=== PATIENT | male | born 1965 | race Caucasian/White ===

== ENCOUNTER → 2016-07-21 | Outpatient (CLI) | payer MEDICAID ==
--- NOTE | 2016-07-21 16:42 | CT ---
EXAMINATION TYPE: CT abdomen pelvis w con DATE OF EXAM: 07/21/2016 4:22 PM COMPARISON: NONE INDICATION: left upper quadrant pain and stomach pain DLP: 2306 mGycm, Automated exposure control for dose reduction was used. CONTRAST: 100 mL of Omnipaque 300. Study performed with Oral Contrast TECHNIQUE: Axial images were obtained from above the diaphragm to the pubic rami in the axial plane a t 5 mm thick sections. Reconstructed images are reviewed on the computer in the coronal plane. FINDINGS: Limited CT sections are obtained the lung bases. The lung bases are clear. CT ABDOMEN: Liver: There is an irregular 5.0 cm hypodense mass in the posterior medial right lobe liver suspiciou s for hemangioma. This measures 35 Hounsfield units and fills peripheral towards medial. This area i s similar in appearance to the 08/25/2014 examination suggesting neoplasm to BE less likely. There are additional hypodensities scattered within the liver which has smooth margins lower Hounsfie ld unit measurements more likely related to cysts. The largest is in the inferior right lobe liver me asuring 3.9 cm. There are additional low density indeterminate rounded masses measuring approximately 1.7 and 1.6 cm in size along the anterior right left lobe of the liver margins. These could be addit ional hemangioma faintly visualized previously. Additional small hypodensities in the anterior right lobe liver subcortical margin may be additional cyst. Spleen: Normal Pancreas: Normal Adrenal glands: The adrenal glands are normal. Gallbladder: Normal Kidneys: No masses are evident. No hydronephrosis is present. No cysts are present. Delayed images were obtained through the kidneys, which remain unremarkable. Aorta: Vascular calcification is within the aorta. Inferior vena cava: Normal. CT PELVIS: Loops of bowel within the abdomen and pelvis are normal. Multiple diverticuli without acute diver ticulitis is within the sigmoid colon. Appendix: Normal as visualized. Urinary bladder: Normal. Genitourinary structures: Prostate is unremarkable. Osseous structures: No suspicious lytic or sclerotic lesions. IMPRESSIONS: 1. Probable hemangiomas within the liver without significant change from 08/25/2014.
== END | disposition home or self-care (01) ==
LOC: RADCTMAIN 14:12
PROVIDERS: ATTEND Physician Assistant
DX: R10.9 Unspecified abdominal pain (principal)
CPT/HCPCS: 74177; Q9967; 76700

== ENCOUNTER → 2016-07-21 | Outpatient (CLI) | payer MEDICAID ==
--- NOTE | 2016-07-21 10:34 | US ---
EXAMINATION TYPE: US abdomen complete DATE OF EXAM: 07/21/2016 10:06 AM COMPARISON: Correlation ultrasound 08/11/[address] abdomen 08/25/2014 CLINICAL HISTORY: 51-year-old male with R10.9 Abdominal Pain. LUQ pain. NPO. History of liver lesions . TECHNIQUE: Multiple sonographic images of the abdomen are obtained. FINDINGS: Liver Length: 18.6 cm Gallbladder Wall: 0.2 cm CHD: 0.5 cm Spleen: 12.6 cm Right Kidney: 11.7 x 6.5 x 6.6 cm Left Kidney: 11.2 x 6.0 x 6.9 cm Pancreas: Obscured by bowel gas Liver: Mildly enlarged. Multiple lesions seen. 1- Posterior right lobe, cystic lesion = 5.0 x 3.3 x 4.1 cm. 2- Right lobe, cystic lesion = 1.2 x 1.0 x 0.8 cm. 3- Septated cystic lesion in right lobe - 1.4 x 1.7 x 1.0 cm. 4- Echogenic nonvascular lesion in left anterior lobe = 1.7 x 1.8 x 1.7 cm, likely hemangioma when co rrelating with prior exams. 5- Hyperechoic solid vascular lesion in anterior left lobe = 3.2 x 3.3 x 2.6 cm. Position and appea eduar corresponds well to a hemangioma seen on to CTA of 08/25/14. Gallbladder: Mildly hydropic measuring 4.3 cm wide. However, no evidence for wall thickening, perich olecystic fluid, or shadowing calculi. Evidence for sonographic Colin's sign: neg CHD: Normal caliber Spleen: Within normal limits Right Kidney: No hydronephrosis Left Kidney: No hydronephrosis Upper IVC: seen Abd Aorta: seen IMPRESSION: 1. Mild hepatomegaly. 2. A number of liver lesions are present, suspected to represent benign cysts and hemangiomas, measur ing up to 5 cm and 3. Mildly hydropic gallbladder likely due to fasting state as there are no ancillary findings of chol elithiasis or acute cholecystitis.
== END | disposition home or self-care (01) ==
LOC: RADUSWWP 09:29
PROVIDERS: ATTEND Family Medicine
DX: R16.0 Hepatomegaly, not elsewhere classified (principal); K76.9 Liver disease, unspecified; K82.1 Hydrops of gallbladder
CPT/HCPCS: 76700

== ENCOUNTER 2016-10-20 09:04 | Day surgery (SDC) | payer MEDICAID ==
[2016-10-17 12:30] VITALS: BMI 35.2
[~2016-10-20 09:04] MED LIST: LACTATED RINGERS 1,000 ML IV SCH
[2016-10-20 09:46] VITALS: TEMP 98.3
[2016-10-20] MEDS ORDERED: LIDOCAINE 1% 20 ML VIAL (10MG/ML) FOR IV START INTRADERMA ONE (09:52)
[2016-10-20] MEDS ORDERED: PROPOFOL 10 MG/ML 20 ML VIAL IV ONE (10:20)
--- NOTE | 2016-10-20 10:51 | P.PCN ---
Date of Procedure: 10/20/16 Preoperative Diagnosis: Postoperative Diagnosis: Procedure(s) Performed: BRIEF HISTORY: Patient is a 51-year-old pleasant white male, scheduled for an elective colonoscopy as a part of evaluation of recent episode of acute sigmoid diverticulitis and haven't 2 months ago. Presently he complains of intermittent right lower quadrant abdominal pain but denies any change in bowel habits. PROCEDURE PERFORMED: Colonoscopy with biopsy biopsy. PREOPERATIVE DIAGNOSIS: He said episode of acute sigmoid diverticulitis. IV sedation per Anesthesia. PROCEDURE: After informed consent was obtained, the patient, was brought into the endoscopy unit. IV sedation was administered by Anesthesia under continuous monitoring. Digital rectal examination was normal. Initially the Olympus CF- 160 flexible video colonoscope was then inserted in the rectum, gradually advanced into the cecum without any difficulty. Careful examination was performed as the scope was gradually being withdrawn. Ileocecal valve and the appendiceal orifice were visualized and appeared normal. Prep was excellent. Mucosa of the cecum, ascending colon, transverse colon, descending colon, sigmoid colon, and rectum appeared normal. 5 mm the polyp was noted in the distal rectum which was removed by biopsy. Scattered sigmoid diverticulosis seen. Retroflexion was performed in the rectum and no lesions were seen. The patient tolerated the procedure well. IMPRESSION: 5 mm distal rectal polyp status post removal by biopsy Scattered sigmoid diverticulosis RECOMMENDATIONS: Findings of this examination were discussed with the patient as well as his family. He was advised to follow with the biopsy results. He' ll be a high-fiber diet, take fiber supplements a regular basis. If the biopsy shows a tubular adenoma he can have a repeat colonoscopy in 5 years. Implants: Indications for Procedure: Operative Findings: Description of Procedure:
[2016-10-20 11:10] VITALS: RESP 18
[2016-10-20 11:15] VITALS: PULSE 71
[2016-10-20 11:23] VITALS: BP 132/90
== END 2016-10-20 11:35 | disposition home or self-care (01) ==
LOC: ORWHC2ENDO 09:04
PROVIDERS: ATTEND Internal Medicine Gastroenterology
DX: K62.1 Rectal polyp (principal); K57.30 Diverticulosis of large intestine without perforation or abscess without bleeding; I10 Essential (primary) hypertension; J44.9 Chronic obstructive pulmonary disease, unspecified; Z87.891 Personal history of nicotine dependence; K21.9 Gastro-esophageal reflux disease without esophagitis; Z88.6 Allergy status to analgesic agent
CPT/HCPCS: 88305; 45380; J2704

== ENCOUNTER → 2020-03-19 | Outpatient (CLI) | payer MEDICAID ==
[2020-03-19 12:30] LABS: HCT 44.3 % (39.0-53.0); HGB 14.6 gm/dL (13.0-17.5); MCH 29.1 pg (25.0-35.0); MCHC 33.1 g/dL (31.0-37.0); MCV 88.2 fL (80.0-100.0); Mean Platelet Volume 7.9; Platelet Count 300 k/uL (150-450); RBC 5.02 m/uL (4.30-5.90); RDW 12.6 % (11.5-15.5); WBC 7.6 k/uL (3.8-10.6)
[2020-03-19 20:18] LABS: Erythrocyte Sedimentation Rate 6 mm/Hr (0-20)
[2020-03-19 22:04] LABS: ALT 36 U/L (10-49); AST 23 U/L (14-35); African American GFR (CKD) 99.1 (60.0-200.0); Albumin/Globulin Ratio 2.33 (1.60-3.17); Alkaline Phosphatase 92 U/L (41-126); C Reactive Protein <0.4 mg/dL (0.0-0.8); Calcium 9.6 mg/dL (8.7-10.3); Carbon Dioxide 28.1 mmol/L (21.6-31.8); Chloride 102 mmol/L (96-109); Globulin 2.1 g/dL (1.6-3.3); Glucose 91 mg/dL (70-110); Non-African American GFR(CKD) 85.5 (60.0-200.0); Potassium 4.5 mmol/L (3.5-5.5); Sodium 140 mmol/L (135-145); Total Bilirubin 0.6 mg/dL (0.2-1.2)
== END | disposition home or self-care (01) ==
LOC: LABWHC1 11:47
PROVIDERS: ATTEND Orthopaedic Surgery Adult Reconstructive Orthopaedic Surgery
DX: T84.84XS Pain due to internal orthopedic prosthetic devices, implants and grafts, sequela (principal); Z47.1 Aftercare following joint replacement surgery; Z96.652 Presence of left artificial knee joint; E66.9 Obesity, unspecified; M23.52 Chronic instability of knee, left knee
CPT/HCPCS: 36415; 80053; 85027; 85652; 86140

== ENCOUNTER 2020-08-05 08:42 | Emergency (ER) | payer MEDICAID ==
[2020-08-05 08:52] VITALS: RESP 18; TEMP 97.9
[2020-08-05] MEDS ORDERED: HYDROmorphone 0.5 MG/0.5 ML SYRINGE IVP STA (09:07)
[2020-08-05] MEDS ORDERED: ONDANSETRON 4 MG/2 ML VIAL IVP STA (09:07)
[2020-08-05] MEDS ORDERED: SODIUM CHLORIDE 0.9% 1,000 ML IV STA (09:07)
--- NOTE | 2020-08-05 09:13 | ED ---
Abdominal Pain HPI - General Chief Complaint: Abdominal Pain Stated Complaint: Sent by PCP - hernia Time Seen by Provider: 08/05/20 08:57 Source: patient, RN notes reviewed Mode of arrival: ambulatory Limitations: no limitations - History of Present Illness Initial Comments: 55-year-old male presents emergency Department chief complaint of abdominal kaitlin n. Patient states that he had some pain 1 on doing has rapid strep his boat yesterday states that the pain continued he lay down last night symptoms did improve some but still has quite a bit of pain in the right periumbilical side. Patient was seen by PCP sent him to emergency from for evaluation. Patient had 2 prior inguinal hernia repair no other abdominal surgeries denies any dysuria hematuria had normal bowel movements morning passing gas well. - Related Data Home Medications Medication Instructions Recorded Confirmed Losartan Potassium 50 mg PO DAILY 05/03/15 08/05/20 Fluticasone/Vilanterol [Breo 1 puff INHALATION RT-DAILY 08/05/20 08/05/20 Ellipta 200-25 Mcg INH] Allergies Allergy/AdvReac Type Severity Reaction Status Date / Time NSAIDS (Non-Steroidal AdvReac Unknown INSTRUCTED Verified 08/05/20 08:51 Anti-Inflamma NOT TO TAKE - HX OF ULCER Review of Systems ROS Statement: Those systems with pertinent positive or pertinent negative responses have been documented in the HPI. ROS Other: All systems not noted in ROS Statement are negative. Past Medical History Past Medical History: GERD/Reflux, GI Bleed, Hypertension, Musculoskeletal Disorder, Osteoarthritis (OA) Additional Past Medical History / Comment(s): DJD, BULGING CERVICAL DISCS, CHRONIC BACK AND NECK PAIN., LEFT LEG NUMBNESS. BILATERAL ANKLE EDEMA AT TIMES, KNEES "GIVE OUT" AT TIMES., HX OF BLEEDING STOMACH ULCER., STATES EASILY SOB., STATES POSSIBLE DIVERTICULITIS. History of Any Multi-Drug Resistant Organisms: None Reported Past Surgical History: Hernia Repair, Joint Replacement, Orthopedic Surgery Additional Past Surgical History / Comment(s): L knee surgeries X 4 R knee arthroscopy, bilateral inguina hernia repairs. BILAT TKA Past Anesthesia/Blood Transfusion Reactions: No Reported Reaction Additional Past Anesthesia/Blood Transfusion Reaction / Comment(s): . Past Psychological History: No Psychological Hx Reported Smoking Status: Never smoker Past Alcohol Use History: Occasional Past Drug Use History: None Reported - Past Family History Father Family Medical History: Cancer, Hyperlipidemia, Hypertension Additional Family Medical History / Comment(s): SKIN CANCER. Mother Family Medical History: Osteoarthritis (OA) Additional Family Medical History / Comment(s): . General Exam Limitations: no limitations General appearance: alert, in no apparent distress Head exam: Present: atraumatic, normocephalic, normal inspection Respiratory exam: Present: normal lung sounds bilaterally. Absent: respiratory distress, wheezes, rales, rhonchi, stridor Cardiovascular Exam: Present: regular rate, normal rhythm, normal heart sounds. Absent: systolic murmur, diastolic murmur, rubs, gallop, clicks GI/Abdominal exam: Present: soft, tenderness (Moderate right periumbilical tenderness), normal bowel sounds, hernia (Reducible umbilical). Absent: distended, guarding, rebound, rigid Back exam: Absent: CVA tenderness (R), CVA tenderness (L) Neurological exam: Present: alert Skin exam: Present: warm, dry, intact, normal color. Absent: rash Course Vital Signs 08/05/20 08:43 Temperature 97.9 F Pulse Rate 66 Respiratory 18 Rate Blood Pressure 160/88 O2 Sat by Pulse 98 Oximetry Medical Decision Making - Medical Decision Making CT does not reveal any acute abnormality's. Laboratory unremarkable. Patient has abdominal wall strain, reducible hernia will be discharged in stable condition at on-call surgeon. - Lab Data Result diagrams: 08/05/20 09:34 08/05/20 09:34 Lab Results 08/05/20 08/05/20 08/05/20 Range/Units 09:34 09:34 09:34 WBC 6.4 (3.8-10.6) k/uL RBC 4.95 (4.30-5.90) m/uL Hgb 14.5 (13.0-17.5) gm/dL Hct 41.5 (39.0-53.0) % MCV 83.9 (80.0-100.0) fL MCH 29.2 (25.0-35.0) pg MCHC 34.8 (31.0-37.0) g/dL RDW 13.3 (11.5-15.5) % Plt Count 265 (150-450) k/uL MPV 8.2 Neutrophils % 64 % Lymphocytes % 24 % Monocytes % 7 % Eosinophils % 2 % Basophils % 1 % Neutrophils # 4.1 (1.3-7.7) k/uL Lymphocytes # 1.6 (1.0-4.8) k/uL Monocytes # 0.4 (0-1.0) k/uL Eosinophils # 0.2 (0-0.7) k/uL Basophils # 0.0 (0-0.2) k/uL Sodium 137 (137-145) mmol/L Potassium 4.9 (3.5-5.1) mmol/L Chloride 104 (98-107) mmol/L Carbon Dioxide 23 (22-30) mmol/L Anion Gap 10 mmol/L BUN 15 (9-20) mg/dL Creatinine 0.83 (0.66-1.25) mg/dL Est GFR (CKD-EPI)AfAm >90 (>60 ml/min/1.73 sqM) Est GFR (CKD-EPI)NonAf >90 (>60 ml/min/1.73 sqM) Glucose 101 H (74-99) mg/dL Plasma Lactic Acid Elia (0.7-2.0) mmol/L Calcium 9.9 (8.4-10.2) mg/dL Total Bilirubin 0.7 (0.2-1.3) mg/dL AST 30 (17-59) U/L ALT 25 (4-49) U/L Alkaline Phosphatase 94 (38-126) U/L Total Protein 7.7 (6.3-8.2) g/dL Albumin 4.8 (3.5-5.0) g/dL Lipase 259 (23-300) U/L Urine Color Yellow Urine Appearance Clear (Clear) Urine pH 5.5 (5.0-8.0) Ur Specific [place] 1.015 (1.001-1.035) Urine Protein Negative (Negative) Urine Glucose (UA) Negative (Negative) Urine Ketones Negative (Negative) Urine Blood Negative (Negative) Urine Nitrite Negative (Negative) Urine Bilirubin Negative (Negative) Urine Urobilinogen <2.0 (<2.0) mg/dL Ur Leukocyte Esterase Negative (Negative) 08/05/20 Range/Units 09:34 WBC (3.8-10.6) k/uL RBC (4.30-5.90) m/uL Hgb (13.0-17.5) gm/dL Hct (39.0-53.0) % MCV (80.0-100.0) fL MCH (25.0-35.0) pg MCHC (31.0-37.0) g/dL RDW (11.5-15.5) % Plt Count (150-450) k/uL MPV Neutrophils % % Lymphocytes % % Monocytes % % Eosinophils % % Basophils % % Neutrophils # (1.3-7.7) k/uL Lymphocytes # (1.0-4.8) k/uL Monocytes # (0-1.0) k/uL Eosinophils # (0-0.7) k/uL Basophils # (0-0.2) k/uL Sodium (137-145) mmol/L Potassium (3.5-5.1) mmol/L Chloride (98-107) mmol/L Carbon Dioxide (22-30) mmol/L Anion Gap mmol/L BUN (9-20) mg/dL Creatinine (0.66-1.25) mg/dL Est GFR (CKD-EPI)AfAm (>60 ml/min/1.73 sqM) Est GFR (CKD-EPI)NonAf (>60 ml/min/1.73 sqM) Glucose (74-99) mg/dL Plasma Lactic Acid Elia 1.2 (0.7-2.0) mmol/L Calcium (8.4-10.2) mg/dL Total Bilirubin (0.2-1.3) mg/dL AST (17-59) U/L ALT (4-49) U/L Alkaline Phosphatase (38-126) U/L Total Protein (6.3-8.2) g/dL Albumin (3.5-5.0) g/dL Lipase (23-300) U/L Urine Color Urine Appearance (Clear) Urine pH (5.0-8.0) Ur Specific [place] (1.001-1.035) Urine Protein (Negative) Urine Glucose (UA) (Negative) Urine Ketones (Negative) Urine Blood (Negative) Urine Nitrite (Negative) Urine Bilirubin (Negative) Urine Urobilinogen (<2.0) mg/dL Ur Leukocyte Esterase (Negative) Disposition Clinical Impression: Abdominal wall strain, Umbilical hernia Disposition: HOME SELF-CARE Condition: Stable Instructions (If sedation given, give patient instructions): Ventral Hernia (ED) Additional Instructions: Please return to the Emergency Department if symptoms worsen or any other concerns. Is patient prescribed a controlled substance at d/c from ED?: No Referrals: Vivian Esteban MD [Primary Care Provider] - 1-2 days Lb Suarez MD [STAFF PHYSICIAN] - 1-2 days Time of Disposition: 10:40
[2020-08-05 09:55] LABS: Basophils % (A) 1 %; Eosinophils # (A) 0.2 k/uL (0-0.7); Eosinophils % (A) 2 %; HCT 41.5 % (39.0-53.0); HGB 14.5 gm/dL (13.0-17.5); Lymphocytes # (A) 1.6 k/uL (1.0-4.8); Lymphocytes % (A) 24 %; MCH 29.2 pg (25.0-35.0); MCHC 34.8 g/dL (31.0-37.0); MCV 83.9 fL (80.0-100.0); Mean Platelet Volume 8.2; Monocytes # (A) 0.4 k/uL (0-1.0); Monocytes % (A) 7 %; Neutrophils # (A) 4.1 k/uL (1.3-7.7); Neutrophils % (A) 64 %; Platelet Count 265 k/uL (150-450); RBC 4.95 m/uL (4.30-5.90); RDW 13.3 % (11.5-15.5); WBC 6.4 k/uL (3.8-10.6)
[2020-08-05 09:57] LABS: Appearance,Urine Clear (Clear); Bilirubin,Urine Negative (Negative); Blood,Urine Negative (Negative); Color,Urine Yellow; Glucose,Urine (UA) Negative (Negative); Ketones,Urine Negative (Negative); Leukocyte Esterase,Urine Negative (Negative); Nitrite,Urine Negative (Negative); PH, Urine 5.5 (5.0-8.0); Protein,Urine Negative (Negative); Specific Gravity,Urine 1.015 (1.001-1.035); Urobilinogen,Urine <2.0 mg/dL (<2.0)
[2020-08-05 10:03] LABS: ALT 25 U/L (4-49); AST 30 U/L (17-59); African American GFR (CKD) >90 (>60 ml/min/1.73 sqM); Albumin 4.8 g/dL (3.5-5.0); Alkaline Phosphatase 94 U/L (38-126); Anion Gap 10 mmol/L; Blood Urea Nitrogen 15 mg/dL (9-20); Calcium 9.9 mg/dL (8.4-10.2); Carbon Dioxide 23 mmol/L (22-30); Chloride 104 mmol/L (98-107); Glucose 101 mg/dL (74-99); Lipase 259 U/L (23-300); Non-African American GFR(CKD) >90 (>60 ml/min/1.73 sqM); Potassium 4.9 mmol/L (3.5-5.1); Sodium 137 mmol/L (137-145); Total Bilirubin 0.7 mg/dL (0.2-1.3); Total Protein 7.7 g/dL (6.3-8.2)
--- NOTE | 2020-08-05 10:33 | CT ---
EXAMINATION TYPE: CT abdomen pelvis w con DATE OF EXAM: 08/05/2020 COMPARISON: CT abdomen pelvis 07/21/2016 HISTORY: Abdominal pain, prior hernia CT DLP: 2035.6 mGycm Automated exposure control for dose reduction was used. TECHNIQUE: Helical acquisition of images was performed from the lung bases through the pelvis. Delay ed images through the abdomen were obtained for evaluation of the renal collecting system. CONTRAST: Performed without Oral Contrast and with IV Contrast, patient injected with 100 ml mL of Isovue 300. FINDINGS: LUNG BASES: Normal. LIVER: There are several redemonstrated hypodense masses throughout the right and left lobes of the l iver, which are similar in appearance to 2017 comparison. The largest measures up to 5.5 x 5.0 cm at the right dome. The lesion and anterior segment 3 measures 3.0 x 2.5 cm, which is mildly decreased ve rsus 2017 when it measured 3.4 x 2.7 cm. Several redemonstrated benign appearing hepatic cysts, and t oo small to characterize hypodense lesions. BILIARY SYSTEM: Normal. PANCREAS: Normal. SPLEEN: Normal. ADRENALS: Normal. KIDNEYS: No hydronephrosis bilaterally. There is a subcentimeter exophytic simple cyst of the right i nterpolar kidney. Symmetric renal excretion on delayed images through the kidneys. BOWEL: Tiny hiatal hernia. No obstruction or thickening. Colonic diverticulosis. Redemonstrated duod enal diverticulum of the second and third portions of the duodenum. No acute diverticulitis. PERITONEUM: No pneumoperitoneum. No free fluid. There is a very tiny ventral midline supraumbilical fat-containing hernia. LYMPH NODES: No lymphadenopathy. PELVIS: Normal. VASCULATURE: No abdominal aortic aneurysm. MUSCULOSKELETAL: Mild degenerative changes of the visualized spine. There is a redemonstrated well-d efined lytic lesion of the right iliac bone measuring 1.0 cm (201:62), which is unchanged versus 2017 and likely benign. IMPRESSION: 1. No acute abdominopelvic findings to explain patient's abdominal pain. 2. Colonic and duodenal diverticula with no acute diverticulitis. 3. Several redemonstrated hypodense liver masses are not significantly changed versus 2017, which ma y represent hemangiomas.
[2020-08-05] MEDS ORDERED: ACET/COD 300 MG/30 MG STARTER PACK 6 TAB BTL PO STA (10:39)
[2020-08-05 10:48] VITALS: BP 161/80; PULSE 61
== END 2020-08-05 10:50 | disposition home or self-care (01) ==
LOC: EC 08:42
DX: S39.011A Strain of muscle, fascia and tendon of abdomen, initial encounter (principal); K42.9 Umbilical hernia without obstruction or gangrene; K21.9 Gastro-esophageal reflux disease without esophagitis; I10 Essential (primary) hypertension; M19.90 Unspecified osteoarthritis, unspecified site; X58.XXXA Exposure to other specified factors, initial encounter
CPT/HCPCS: 36415; 80053; 83605; 83690; 85025; 81003; 74177; 99284; 96374; 96375; 96361; J2405; J1170; Q9967

== ENCOUNTER → 2021-06-09 | Outpatient (CLI) | payer MEDICAID ==
--- NOTE | 2021-06-09 12:50 | MR ---
EXAMINATION TYPE: MR shoulder LT wo con DATE OF EXAM: 06/09/2021 COMPARISON: 05/27/2021 HISTORY: Left shoulder pain for 5 weeks, limited range of motion. TECHNIQUE: Multiplanar, multisequence imaging of the Left shoulder is performed without contrast. FINDINGS: Incidental note is made of an os acromiale. There is a small glenohumeral joint effusion with a small amount of fluid in the subcutaneous acromia l and subdeltoid bursa area There is diffuse severe thickening and increased signal edematous change involving the entire inserti on of the supraspinatus tendon compatible with a high-grade partial tear most noted along the articul ar fibers with a few bursal surface strands remaining. Subscapularis tendon is intact. Increased signal at the insertion of the infraspinatus tendon along t he articular fibers. Bicipital tendon is well situated within the bicipital groove with increased fluid surrounding the te ndon. Additionally there is increased intrasubstance signal in the intracapsular portion of the tendo n compatible with tendinosis. Suprascapular notch has a normal appearance. There is abnormal signal involving the superior labrum extending from anterior to posterior compatibl e with a SLAP tear. There is abnormal signal involving the anterior inferior labrum compatible with l abral tear. There is thickening of the inferior glenohumeral ligament compatible with sprain. Suspect a partial tear at the glenoid attachment of the inferior glenohumeral ligament. AC joint arthropathy is noted with findings compatible with moderate osteoarthritis. Nonspecific carine ow signal likely reactive secondary to chronic impingement involving the superior margin of the humer al head. Chronic appearing deformity could be on the basis of chronic impingement rather than previou s dislocation correlate clinically. IMPRESSION: 1. Diffuse thickening and edematous change involving the insertion and distal supraspinatus tendon co mpatible severe tendinosis and high-grade partial tear greatest involvement involving the articular f ibers. A few residual bursal surface stranding remained without evidence of complete through thicknes s tear or retraction. 2. SLAP tear 3. There is a tear involving the anterior inferior glenoid labrum. Thickening and edematous change of the inferior glenohumeral ligament compatible with sprain. Partial tear at the glenoid attachment of the inferior glenohumeral ligament. 4. Bicipital tendinosis. Increased intrasubstance signal within the intracapsular portion of the tend on can be associated with a split tear correlate clinically. 5. Thickening and increased signal compatible with edematous change involving the insertion of the in fraspinatus tendon compatible tendinosis and partial intrasubstance tear predominantly involving the articular fibers. Bursal fibers intact.
== END | disposition home or self-care (01) ==
LOC: RADMRIMAIN 10:52
PROVIDERS: ATTEND Orthopaedic Surgery
DX: S43.432A Superior glenoid labrum lesion of left shoulder, initial encounter (principal); M75.22 Bicipital tendinitis, left shoulder; M75.52 Bursitis of left shoulder; X58.XXXA Exposure to other specified factors, initial encounter

== ENCOUNTER → 2021-08-22 | Outpatient (CLI) | payer MEDICAID ==
[2021-08-22 14:02] VITALS: BP 175/99; PULSE 75; RESP 18; TEMP 98.3
--- NOTE | 2021-08-22 14:10 | P.CONS ---
History of Present Illness - Reason for Consult Consult date: 08/22/21 - Chief Complaint Bilateral knee pain, left shoulder pain - History of Present Illness This is a 56-year-old gentleman with history of chronic neck pain bilaterally status post multiple surgeries on the left knee ended with removal of the left patella. This pain starts with any weightbearing activity. The patient failed to respond to multiple interventional pain procedures previously as he states and also failed to respond to physical therapy. He does wear a brace around his left knee constantly. The patient tries to stay active and that's why he found that Van Meter is the only treatment which helped him do that. Used to be on Van Meter 10 mg 4 times a day and he takes them as 2 pills in the morning and 2 pills at night. The patient denies any side effects to this medication. Review of Systems Constitutional: Reports as per HPI Ears, nose, mouth and throat: Denies headache, Denies sore throat Cardiovascular: Denies chest pain, Denies shortness of breath Respiratory: Denies cough Musculoskeletal: Reports as per HPI Integumentary: Denies pruritus, Denies rash Neurological: Reports as per HPI Past Medical History Past Medical History: GERD/Reflux, GI Bleed, Hypertension, Musculoskeletal Disorder, Osteoarthritis (OA) Additional Past Medical History / Comment(s): DJD, BULGING CERVICAL DISCS, CHRONIC BACK AND NECK PAIN., LEFT LEG NUMBNESS. BILATERAL ANKLE EDEMA AT TIMES, KNEES "GIVE OUT" AT TIMES., HX OF BLEEDING STOMACH ULCER., STATES EASILY SOB., STATES POSSIBLE DIVERTICULITIS. History of Any Multi-Drug Resistant Organisms: None Reported Past Surgical History: Hernia Repair, Joint Replacement, Orthopedic Surgery Additional Past Surgical History / Comment(s): L knee surgeries X 4 R knee arthroscopy, bilateral inguina hernia repairs. BILAT TKA Past Anesthesia/Blood Transfusion Reactions: No Reported Reaction Additional Past Anesthesia/Blood Transfusion Reaction / Comm: . Smoking Status: Never smoker - Past Family History Father Family Medical History: Cancer, Hyperlipidemia, Hypertension Additional Family Medical History / Comment(s): SKIN CANCER. Mother Family Medical History: Osteoarthritis (OA) Additional Family Medical History / Comment(s): . Medications and Allergies Home Medications Medication Instructions Recorded Confirmed Type Losartan Potassium 50 mg PO DAILY 05/03/15 08/05/20 History Fluticasone/Vilanterol [Breo 1 puff INHALATION RT-DAILY 08/05/20 08/05/20 History Ellipta 200-25 Mcg Inhaler] Allergies Allergy/AdvReac Type Severity Reaction Status Date / Time NSAIDS (Non-Steroidal AdvReac Unknown INSTRUCTED Verified 08/05/20 08:51 Anti-Inflamma NOT TO TAKE - HX OF ULCER Physical Exam Vitals: Vital Signs Temp Pulse Resp BP Pulse Ox 08/22/21 13:50 98.3 F 75 18 175/99 75 L - Constitutional General appearance: morbidly obese - EENT Eyes: PERRLA - Neurologic Neurologic: CNII-XII intact - Musculoskeletal Antalgic gait Swelling around the left knee with tenderness Well-healed scars from previous surgery on the knees bilaterally - Psychiatric Psychiatric: A&O x's 3, appropriate affect, intact judgment & insight Assessment and Plan Plan: This is a 56-year-old gentleman with history of chronic mechanical pain in both knees due to previous multiple surgeries. The patient failed to respond to interventional procedures and physical therapy previously. Van Meter has been working well for his pain as he states. I I will refer the patient to see Dr. Chan for opioid management and I will give him prescription for only 60 pills of Van Meter 10 mg to last her until he gets any with Dr. Montgomery. I thank you for the referral
== END ==
LOC: PNWHC3 13:05
PROVIDERS: ATTEND Anesthesiology
DX: M25.562 Pain in left knee (principal); M25.561 Pain in right knee; I10 Essential (primary) hypertension; M19.90 Unspecified osteoarthritis, unspecified site; Z88.6 Allergy status to analgesic agent; Z87.891 Personal history of nicotine dependence
CPT/HCPCS: 99211

== ENCOUNTER 2022-03-22 14:22 | Emergency (ER) | payer BC, MEDICAID ==
[2022-03-22 14:37] VITALS: TEMP 98.2
[2022-03-22] MEDS ORDERED: HYDROmorphone 1 MG/ML 1 ML SYRINGE IM STA (15:01)
--- NOTE | 2022-03-22 15:19 | ED ---
Extremity Problem HPI - General Chief complaint: Extremity Problem,Nontraumatic Stated complaint: left leg injury Time Seen by Provider: 03/22/22 14:38 Source: patient, RN notes reviewed Mode of arrival: wheelchair Limitations: physical limitation - History of Present Illness Initial comments: 56-year-old male presents emergency Department chief complaint left ankle, left leg pain. Patient states she stands rocks one step down states that his foot, ankle and leg twisted. He complains of left lateral ankle pain, left proximal tib-fib pain. Patient states that he has a bad knee and the left always wears a brace. Patient denies any paresthesias denies any other muscle skeletal injury. Patient did not take anything prior arrival. Patient states he has an ALLERGY to anti-inflammatories - Related Data Home Medications Medication Instructions Recorded Confirmed Losartan Potassium 50 mg PO DAILY 05/03/15 08/05/20 Fluticasone/Vilanterol [Breo 1 puff INHALATION RT-DAILY 08/05/20 08/05/20 Ellipta 200-25 Mcg Inhaler] Allergies Allergy/AdvReac Type Severity Reaction Status Date / Time NSAIDS (Non-Steroidal AdvReac Unknown INSTRUCTED Verified 03/22/22 14:36 Anti-Inflamma NOT TO TAKE - HX OF ULCER Review of Systems ROS Statement: Those systems with pertinent positive or pertinent negative responses have been documented in the HPI. ROS Other: All systems not noted in ROS Statement are negative. Past Medical History Past Medical History: GERD/Reflux, GI Bleed, Hypertension, Musculoskeletal Disorder, Osteoarthritis (OA) Additional Past Medical History / Comment(s): DJD, BULGING CERVICAL DISCS, CHRONIC BACK AND NECK PAIN., LEFT LEG NUMBNESS. BILATERAL ANKLE EDEMA AT TIMES, KNEES "GIVE OUT" AT TIMES., HX OF BLEEDING STOMACH ULCER., STATES EASILY SOB., STATES POSSIBLE DIVERTICULITIS. History of Any Multi-Drug Resistant Organisms: None Reported Past Surgical History: Hernia Repair, Joint Replacement, Orthopedic Surgery Additional Past Surgical History / Comment(s): L knee surgeries X 4 R knee arthroscopy, bilateral inguina hernia repairs. BILAT TKA Past Anesthesia/Blood Transfusion Reactions: No Reported Reaction Additional Past Anesthesia/Blood Transfusion Reaction / Comment(s): . Past Psychological History: No Psychological Hx Reported Smoking Status: Never smoker Past Alcohol Use History: Occasional Past Drug Use History: None Reported - Past Family History Father Family Medical History: Cancer, Hyperlipidemia, Hypertension Additional Family Medical History / Comment(s): SKIN CANCER. Mother Family Medical History: Osteoarthritis (OA) Additional Family Medical History / Comment(s): . General Exam Limitations: no limitations General appearance: alert, in no apparent distress Head exam: Present: atraumatic, normocephalic, normal inspection Neck exam: Present: normal inspection. Absent: tenderness, meningismus, lymphadenopathy Respiratory exam: Present: normal lung sounds bilaterally. Absent: respiratory distress, wheezes, rales, rhonchi, stridor Cardiovascular Exam: Present: regular rate, normal rhythm, normal heart sounds. Absent: systolic murmur, diastolic murmur, rubs, gallop, clicks Extremities exam: Present: other (Left ankle lateral malleolar region there is moderate swelling and tenderness palpation there is diffuse tenderness to the lateral portion the left leg to the proximal tib-fib region neurovascular intact no foot tenderness no ecchymosis noted) Skin exam: Present: warm, dry, intact, normal color. Absent: rash Course Vital Signs 03/22/22 14:33 Temperature 98.2 F Pulse Rate 75 Respiratory 16 Rate Blood Pressure 151/96 O2 Sat by Pulse 100 Oximetry Medical Decision Making - Medical Decision Making X-ray as interpreted by me and radiology proximal fibular fracture x-rays include left ankle left tib-fib left knee patient was placed in knee immobilizer was placed and crutches will follow-up with orthopedics advised to remain essentially nonweightbearing until follow-up Disposition Clinical Impression: Fracture of left proximal fibula Disposition: HOME SELF-CARE Condition: Stable Instructions (If sedation given, give patient instructions): Leg Fracture (ED) Additional Instructions: Please return to the Emergency Department if symptoms worsen or any other concerns. Is patient prescribed a controlled substance at d/c from ED?: No Referrals: [facility] [NON-STAFF] - (Supplier of Crutches) Vivian Esteban MD [Primary Care Provider] - 1-2 days Rogelio Dey MD [STAFF PHYSICIAN] - 1-2 days Time of Disposition: 15:58
--- NOTE | 2022-03-22 16:01 | XR ---
EXAMINATION TYPE: XR knee complete LT DATE OF EXAM: 03/22/2022 CLINICAL HISTORY: pain TECHNIQUE: Three views of the left knee are obtained. COMPARISON: None. FINDINGS: Total knee arthroplasty is in place with the femoral and tibial components appearing well s eated. There is a proximal fibular diaphyseal fracture noted with displacement of approximately 4 mm. No additional fractures are seen within the elaes-pa-aqem. Prepatellar soft tissue swelling noted. IMPRESSION: Proximal left fibular diaphyseal fracture.
--- NOTE | 2022-03-22 16:04 | XR ---
EXAMINATION TYPE: XR tibia fibula LT DATE OF EXAM: 03/22/2022 CLINICAL HISTORY: pain TECHNIQUE: AP and lateral images of the left tibia and fibula are obtained. COMPARISON: None. FINDINGS: Mildly displaced proximal left fibular diaphyseal fracture. No additional fractures identif ied. The joint spaces appear within normal limits. The overlying soft tissue appears unremarkable. IMPRESSION: As above
--- NOTE | 2022-03-22 16:08 | XR ---
EXAMINATION TYPE: XR ankle complete LT DATE OF EXAM: 03/22/2022 COMPARISON: NONE HISTORY: Pain TECHNIQUE: 3 views of the left ankle are submitted for evaluation. FINDINGS: There is no evidence for fracture or dislocation. Well-corticated ossific density adjacent to the medial malleolus likely related to chronic avulsion. Ankle mortise is intact. Soft tissues are within normal limits. IMPRESSION: 1. No evidence for acute fracture.
[2022-03-22] MEDS ORDERED: ACET/COD 300 MG/30 MG STARTER PACK 6 TAB BTL PO STA (16:10)
[2022-03-22 17:00] VITALS: BP 160/71; PULSE 88; RESP 22
== END 2022-03-22 16:59 | disposition home or self-care (01) ==
LOC: EC 14:22 → SUPCPDRO 14:22 → EC 16:59
DX: S82.402A Unspecified fracture of shaft of left fibula, initial encounter for closed fracture (principal); K21.9 Gastro-esophageal reflux disease without esophagitis; I10 Essential (primary) hypertension; M19.90 Unspecified osteoarthritis, unspecified site; Z88.6 Allergy status to analgesic agent; Z79.899 Other long term (current) drug therapy; X50.9XXA Other and unspecified overexertion or strenuous movements or postures, initial encounter
CPT/HCPCS: 73590; 73562; 73610; 99283; 96372; J1170

== ENCOUNTER → 2023-07-23 | Outpatient (CLI) | payer BC ==
[2023-07-23 11:20] LABS: Basophils # (A) 0.06 X 10*3/uL (0.00-0.10); Basophils % (A) 0.6 %; Eosinophils # (A) 0.13 X 10*3/uL (0.04-0.35); Eosinophils % (A) 1.4 %; HCT 38.6 % (39.6-50.0); HGB 12.6 g/dL (13.0-17.0); Lymphocytes # (A) 1.92 X 10*3/uL (0.90-5.00); Lymphocytes % (A) 20.1 %; MCH 29.1 pg (27.0-32.0); MCHC 32.6 g/dL (32.0-37.0); MCV 89.1 FL (80.0-97.0); Mean Platelet Volume 10.9 FL (9.5-12.2); Monocytes # (A) 0.61 X 10*3/uL (0.20-1.00); Monocytes % (A) 6.4 %; NRBC Per 100 WBC 0 X 10*3/uL (0.00-0.01); Neutrophils # (A) 6.78 X 10*3/uL (1.80-7.70); Neutrophils % (A) 71.2 %; Platelet Count 257 X 10*3/uL (140-440); RBC 4.33 X 10*6/uL (4.40-5.60); RDW 12.5 % (11.5-14.5); WBC 9.53 X 10*3/uL (4.50-10.00)
[2023-07-23 11:30] LABS: BUN/Creat Ratio 16.89 Ratio (12.00-20.00); Blood Urea Nitrogen 15.2 mg/dL (9.0-27.0); Calcium 9.6 mg/dL (8.7-10.3); Carbon Dioxide 26.4 mmol/L (21.6-31.8); Chloride 100 mmol/L (96-109); Glucose 110 mg/dL (70-110); Potassium 4.6 mmol/L (3.5-5.5); Sodium 138 mmol/L (135-145)
== END | disposition home or self-care (01) ==
LOC: LABPAT 08:14
PROVIDERS: ATTEND Orthopaedic Surgery Hand Surgery
DX: Z01.812 Encounter for preprocedural laboratory examination (principal); G56.01 Carpal tunnel syndrome, right upper limb
CPT/HCPCS: 36415; 80048; 85025

== ENCOUNTER 2023-08-01 06:35 | Day surgery (SDC) | payer BC ==
--- NOTE | 2023-07-31 09:53 | P.HPOR ---
History of Present Illness H&P Date: 07/31/23 Subjective: This is a 57 year old male that presents today for follow up evaluation regarding an 8 month history of progressively worsening right hand and wrist numbness and tingling associated weakness and loss of director music strength. He currently wears braces at night, which provided some relief. He still has numbness that wakes him from sleep at night. Physical Examination: RUE: AIN/PIN/Radial/Ulnar/Median motor intact. Radial/Ulnar/Median SILT. 2+/4 Radial/Ulnar pulses palpated. 5/5 APB, 5/5 FDI. Negative Finkelsteins, negative CMC grind, Positive Durkan's compression. EMG/NCV: 05/16/23 demonstrates moderate right carpal tunnel syndrome. Impression: 1.) Right carpal tunnel syndrome Plan: Diagnosis and treatment options were discussed with the patient. He has failed conservative treatment and wishes to pursue a right endoscopic vs open carpal tunnel release. Risks and benefits of surgery including bleeding, infection, damage to surrounding tissue, need for further surgery, possible need to convert to open procedure, residual numbness were discussed and the patient wished to go forward with surgery. The patient was agreeable with this plan. -Tejas Smith DO Orthopedic Hand/Upper Extremity Surgeon Past Medical History Past Medical History: GERD/Reflux, GI Bleed, Hyperlipidemia, Hypertension, Musculoskeletal Disorder, Osteoarthritis (OA) Additional Past Medical History / Comment(s): DJD, BULGING CERVICAL DISCS, CHRONIC BACK AND NECK PAIN., LEFT LEG NUMBNESS, L knee mario at times/falls, BILATERAL ANKLE EDEMA, BLEEDING STOMACH ULCER., STATES EASILY SOB., STATES POSSIBLE DIVERTICULITIS. History of Any Multi-Drug Resistant Organisms: None Reported Past Surgical History: Hernia Repair, Joint Replacement, Orthopedic Surgery Additional Past Surgical History / Comment(s): Multiple L knee surgeries -2 where total knee replacements, L patella removed, R knee arthroscopy, bilateral TKA, bilateral inguina hernia repairs. Past Anesthesia/Blood Transfusion Reactions: No Reported Reaction Additional Past Anesthesia/Blood Transfusion Reaction / Comment(s): . Past Psychological History: No Psychological Hx Reported Additional Psychological History / Comment(s): Resides with spouse. Owns a walker, cane and crutches. Smoking Status: Former smoker Past Alcohol Use History: Rare Additional Past Alcohol Use History / Comment(s): Pt states he quit smoking in 1999. SMOKED 1 1/2 -2 PPD. SMOKED APPROX 15 YEARS. Past Drug Use History: None Reported - Past Family History Father Family Medical History: Cancer, Hyperlipidemia, Hypertension Additional Family Medical History / Comment(s): SKIN CANCER. Mother Family Medical History: Osteoarthritis (OA) Additional Family Medical History / Comment(s): . Medications and Allergies Home Medications Medication Instructions Recorded Confirmed Type Losartan Potassium 100 mg PO QAM 05/03/15 07/30/23 History Pregabalin [Lyrica] 75 mg PO HS 07/30/23 07/30/23 History Rosuvastatin [Crestor] 10 mg PO QAM 07/30/23 07/30/23 History amLODIPine [Norvasc] 5 mg PO QAM 07/30/23 07/30/23 History diazePAM [Valium] 5 mg PO HS 07/30/23 07/30/23 History Allergies Allergy/AdvReac Type Severity Reaction Status Date / Time NSAIDS (Non-Steroidal AdvReac Unknown INSTRUCTED Verified 07/30/23 10:54 Anti-Inflamma NOT TO TAKE - HX OF ULCER Physical Examination Osteopathic Statement: *. No significant issues noted on an osteopathic structural exam other than those noted in the History and Physical/Consult.
[~2023-08-01 06:35] MED LIST changes: -LACTATED RINGERS 1,000 ML IV SCH; +Pre Op ABX Message 1 EACH MISC MISCELLANE ONE
[2023-08-01] MEDS: LACTATED RINGERS 1,000 ML IV SCH (07:01)
[2023-08-01 07:18] VITALS: TEMP 97.9
[2023-08-01] MEDS ORDERED: MIDAZOLAM 2 MG/2 ML VIAL ONE (07:35)
[2023-08-01] MEDS ORDERED: fentaNYL (PF) 50 MCG/ML 2 ML AMP ONE (07:35)
[2023-08-01] MEDS ORDERED: HYDROmorphone (PF) 1 MG/ML ONE (07:35)
[2023-08-01] MEDS ORDERED: PROPOFOL 10 MG/ML 20 ML VIAL IV ONE (07:35)
[2023-08-01] MEDS: BUPIVACAINE (PF) 0.5% 30 ML VIAL SQ ONE (07:47)
[2023-08-01] MEDS: LIDOCAINE 2% INJ 20 MG/ML SQ ONE (07:47)
[2023-08-01] MEDS ORDERED: HYDROmorphone 0.5 MG/0.5 ML SYRINGE ONE (08:35)
[2023-08-01] MEDS ORDERED: IPRATROPIUM-ALBUTEROL 3 ML NEB ONE (08:35)
--- NOTE | 2023-08-01 08:38 | P.OP ---
Date of Procedure: 08/01/23 Preoperative Diagnosis: Right carpal tunnel syndrome Postoperative Diagnosis: Right carpal tunnel syndrome Procedure(s) Performed: Right endoscopic carpal tunnel release Anesthesia: MAC Surgeon: Tejas Smith Print Machine Operator #1: Joshua Turpin Estimated Blood Loss (ml): 0 Pathology: none sent Condition: stable Disposition: PACU Description of Procedure: This is a 58 year old male who presents today for a right endoscopic carpal tunnel release after having failed conservative treatment in the past. Risks and benefits of surgery were discussed with the patient including bleeding, damage to surrounding tissue, infection, need to convert to open procedure, need for further surgery as well as risks of anesthesia including pulmonary embolism and even and the patient wished to proceed with surgical intervention. The patients was seen in the pre-operative area by myself. Consent and H&P were completed and updated. The correct extremity was marked in the pre-operative area by myself and all other questions were answered. Operative Narrative: The patient was brought to the operating room by the department of anesthesia. They remained on the portable stretcher and a rolling hand table was brought to the side of the operative extremity. Pre-operative time out was performed indicating the correct patient, procedure and laterality. All in the room agreed. The patient was then drifted off to sleep by the department of anes thesia. MAC anesthesia was utilized and a 50:50 mixture of 1% Lidocaine and 0.5% bupivacaine was injected into the subcutaneous tissues of the palmar skin, 8ccs total. A nonsterile tourniquet was then applied to the operative extremity and the right upper extremity was then prepped and draped in normal sterile fashion. The operative extremity was the exsanguinated with an esmarch bandage and the tourniquet was inflated to 250mmHg. 15 blade scalpel was utilized to make a transverse incision on the palmar skin just ulnar to the palmaris longus tendon at the level of the distal wrist crease. Ragnell retractor was then placed radially and blunt dissection was performed to reveal the distal forearm fascia. This was lifted with fine Yovany pick ups and Littler tenotomy scissors were then used to open the forearm fascia transversely and a double skin hook was then placed. Hamate finder was placed into the carpal tunnel and then sequential sized dilators were inserted followed by the synovial elevator to separate the flexor tenosynovium from the undersurface of the transverse carpal ligament and a washboard texture was felt. The MicroAire endoscopic carpal tunnel release system gun was the then inserted into the carpal tunnel hugging the deep portion of the transverse carpal ligament in line with the base of the ring finger. Transverse fibers of the ligament were directly visualized. Pressure was applied on the palm to reveal the distal extent of the transverse carpal ligament. The blade was then deployed and the distal half of the transverse carpal ligament was released. The scope was then brought distal again and remaining transverse fibers were incised with the blade. The proximal half of the transverse carpal ligament was then divided and again the scope was advanced distal and remaining transverse fibers were incised with the blade. The radial and ulnar leaflets were directly visualized and mobile consistent with complete release. Tenotomy scissors were then util ized to release the remaining distal forearm fascia under direct visualization taking care to preserve the palmar cutaneous branch of the median nerve. Skin closure was performed with interrupted 4-0 Monocryl suture followed by steri strips. Sterile dressing was applied consisting 4x4s, Webril, and an miguel bandage. Tourniquet was let down and the hand immediately was well perfused. The patient was then woken by the department of anesthesia and transferred to PACU in stable condition. Joshua VENEGAS was present for the case in its entirety and assisted in major portions of the case and protection of vital neurovascular structures. Tejas Smith D.O. Orthopedic Hand/Upper Extremity Surgeon
[2023-08-01] MEDS: IPRATROPIUM-ALBUTEROL 3 ML NEB INHALATION STA (08:42)
[2023-08-01] MEDS: HYDROmorphone 0.5 MG/0.5 ML SYRINGE IVP ONE (08:44)
[2023-08-01 08:58] VITALS: RESP 16
[2023-08-01 09:51] VITALS: BP 138/76; PULSE 69
== END 2023-08-01 09:25 | disposition home or self-care (01) ==
LOC: OR 06:35
PROVIDERS: ATTEND Orthopaedic Surgery Hand Surgery
DX: G56.01 Carpal tunnel syndrome, right upper limb (principal); K21.9 Gastro-esophageal reflux disease without esophagitis; I10 Essential (primary) hypertension; E78.5 Hyperlipidemia, unspecified; Z87.11 Personal history of peptic ulcer disease; Z87.891 Personal history of nicotine dependence; Z98.890 Other specified postprocedural states; Z79.899 Other long term (current) drug therapy; Z96.653 Presence of artificial knee joint, bilateral; Z82.49 Family history of ischemic heart disease and other diseases of the circulatory system; Z82.61 Family history of arthritis; Z88.5 Allergy status to narcotic agent
CPT/HCPCS: 29848; J2001; J2250; J3010; J1170 ×2; J2704; J0665

== ENCOUNTER 2024-03-31 09:27 | Day surgery (SDC) | payer BC ==
[~2024-03-31 09:27] MED LIST changes: +LIDOCAINE 1% (10MG/ML) FOR IV START INTRADERMA PRN; -Pre Op ABX Message 1 EACH MISC MISCELLANE ONE
[2024-03-31] MEDS: IV FLUID CONTINUATION 1,000 ML IV ONE (10:10)
[2024-03-31] MEDS: LACTATED RINGERS 1,000 ML IV SCH (10:27)
[2024-03-31] MEDS: fentaNYL (PF) 50 MCG/ML 2 ML AMP IVP PRN (10:34)
[2024-03-31] MEDS: MIDAZOLAM 2 MG/2 ML VIAL IV PRN (10:34)
[2024-03-31] MEDS: ONDANSETRON 4 MG/2 ML VIAL IVP ONE (10:40)
[2024-03-31] MEDS: DEXAMETHASONE SOD PHOSPHATE 4 MG/ML 1 ML VIAL IV ONE (10:40)
[2024-03-31 10:47] LABS: Basophils % (A) 1 %; Eosinophils # (A) 0.2 k/uL (0-0.7); Eosinophils % (A) 3 %; HCT 36.4 % (39.0-53.0); HGB 12.4 gm/dL (13.0-17.5); Lymphocytes # (A) 1.7 k/uL (1.0-4.8); Lymphocytes % (A) 31 %; MCV 85.1 fL (80.0-100.0); Mean Platelet Volume 7.6; Monocytes # (A) 0.4 k/uL (0-1.0); Monocytes % (A) 7 %; Neutrophils % (A) 57 %; Platelet Count 253 k/uL (150-450); RBC 4.27 m/uL (4.30-5.90); RDW 12.2 % (11.5-15.5); WBC 5.3 k/uL (3.8-10.6)
--- NOTE | 2024-03-31 11:21 | P.ANPRN ---
Procedure Note - Anesthesia - Nerve Block Performed Bilateral Erector Spinae Single Time Out Performed: Yes Date of Procedure: 03/31/24 Procedure Start Time: 10:34 Procedure Stop Time: :42 Location of Patient: PreOp Indication: Acute Post-Operative Pain, Requested by Surgeon Sedation Type: Sedate with meaningful contact maintained Preparation: Sterile Prep Position: Prone Needle Types: Pajunk Needle Gauge: 21 Ultrasound used to visualize needle placement: Yes Ultrasound used to observe medication spread: Yes Injectate: 0.5% Ropivacaine (see comment for volume) (20 mL +10 mL normal saline + 4 mg of dexamethasone per side) Blood Aspirated: No Pain Paresthesia on Injection Noted: No Resistance on Injection: Normal Image Stored and Saved: Yes Events: Uneventful and Well Tolerated
[2024-03-31] MEDS ORDERED: PROPOFOL 10 MG/ML 20 ML VIAL IV ONE (11:54)
[2024-03-31] MEDS ORDERED: NEOSTIGMINE 1 MG/ML 10 ML VIAL ONE (11:54)
[2024-03-31] MEDS ORDERED: ROPIVACAINE 5 MG/ML 30 ML VIAL ONE (11:54)
[2024-03-31] MEDS ORDERED: ePHEDrine 50 MG/ML 1 ML VIAL ONE (11:54)
[2024-03-31] MEDS ORDERED: MIDAZOLAM 2 MG/2 ML VIAL ONE (11:54)
[2024-03-31] MEDS ORDERED: ROCURONIUM 10 MG/ML (5 ML VIAL) IV ONE (11:54)
[2024-03-31] MEDS ORDERED: GLYCOPYRROLATE 0.2 MG/ML 2 ML VIAL ONE (11:54)
[2024-03-31] MEDS ORDERED: fentaNYL (PF) 50 MCG/ML 2 ML AMP ONE (11:54)
[2024-03-31] MEDS ORDERED: SUCCINYLCHOLINE CHLORIDE 200 MG/10 ML VIAL IV ONE (11:54)
[2024-03-31] MEDS ORDERED: LIDOCAINE 1% INJ 10MG/ML (20 ML MDV) ONE (11:54)
[2024-03-31] MEDS ORDERED: SODIUM CHLORIDE 0.9% (PF) 10 ML VIAL ONE (11:54)
[2024-03-31] MEDS ORDERED: HYDROmorphone (PF) 1 MG/ML ONE (11:54)
[2024-03-31] MEDS: ceFAZolin 3 GM in SODIUM CHLORIDE 0.9% 100 ML IVPB PRN (12:01)
[2024-03-31] MEDS: LIDOCAINE 1%-EPI 1:100,000 20 ML VIAL SQ ONE ×2 (12:09→13:05)
[2024-03-31] MEDS: LACTATED RINGERS 1,000 ML IV ONE (12:48)
[2024-03-31 13:28] VITALS: TEMP 98
[2024-03-31] MEDS: HYDROmorphone 0.5 MG/0.5 ML SYRINGE IVP PRN (13:30)
[2024-03-31] MEDS: droPERidol 5 MG/2 ML VIAL IVP ONE (13:33)
[2024-03-31 15:31] VITALS: PULSE 87; RESP 16
[2024-03-31] MEDS: HYDROcodone/APAP 10-325MG 1 EACH TAB PO ONE (15:34)
[2024-03-31 15:42] VITALS: BP 118/73
--- NOTE | 2024-04-09 02:32 | P.OP ---
Date of Procedure: 03/31/24 Preoperative Diagnosis: Incarcerated Ventral Hernia Postoperative Diagnosis: Incarcerated Ventral Hernia Procedure(s) Performed: Robotic Ventral Hernia Repair with Mesh Anesthesia: MAC Surgeon: Abilio Barba Pathology: none sent Condition: stable Disposition: PACU Description of Procedure: The patient was taken to the operating suite and placed in the supine position. After sedation was given, the patient was intubated. The abdomen was prepped and draped. A timeout was performed. A #5 mm optiview was used to gain access to the abdomen at Bernardo's point and the abdomen was insufflated. Additional 5 mm working ports were placed. The 5 mm optiview port was replaced with a #12 mm port.. The abdominal wall was inspected and there was noted to be an incarcerated fat containing ventral hernia. There was a 6 cm Ventral Hernia with incarcerated fat. While the patient was under anesthesia, I was able to reduce the incarcerated fat from the hernia. I then proceeded to the close the hernia defect with #0 Vicryl suture using a Salas Robyn device. A ventralight mesh was then introduced into the abdomen and tacked in a circumferential manner. It was noted to be in good position with good coverage of the hernia. The ports were then removed and incisions were closed with a monocryl suture. This concluded the procedure.
== END 2024-03-31 16:16 | disposition home or self-care (01) ==
LOC: OR 09:27
PROVIDERS: ATTEND Surgery
DX: K43.6 Other and unspecified ventral hernia with obstruction, without gangrene (principal); G89.18 Other acute postprocedural pain; I10 Essential (primary) hypertension; E78.5 Hyperlipidemia, unspecified; G47.33 Obstructive sleep apnea (adult) (pediatric); F41.9 Anxiety disorder, unspecified; F32.A Depression, unspecified; M19.90 Unspecified osteoarthritis, unspecified site; M54.10 Radiculopathy, site unspecified; K21.9 Gastro-esophageal reflux disease without esophagitis; J44.9 Chronic obstructive pulmonary disease, unspecified; K57.90 Diverticulosis of intestine, part unspecified, without perforation or abscess without bleeding; Z99.89 Dependence on other enabling machines and devices; Z79.1 Long term (current) use of non-steroidal anti-inflammatories (NSAID); Z79.899 Other long term (current) drug therapy; Z88.6 Allergy status to analgesic agent
CPT/HCPCS: 49594; S2900; 64999; 85025